=== PATIENT | female | born 1950 | race Caucasian/White ===

== ENCOUNTER → 2019-02-01 | Outpatient (CLI) | payer MEDICARE, OTHER ==
--- NOTE | 2019-02-01 09:56 | Diagnostic Imaging Report ---
INDICATION: Generalized abdominal pain. EXAMINATION: Supine and upright abdominal images. FINDINGS: The lung bases are clear. There is no retroperitoneal free air. The gallbladder appears to be surgically absent. The bowel gas pattern is normal. There are no pathologic masses or calcifications. IMPRESSION: No acute abnormalities in the abdomen. Dictated by: Dictated on workstation # [id number]
== END ==
LOC: RAD FS 09:35
PROVIDERS: ATTEND Nurse Practitioner Family
DX: R10.84 Generalized abdominal pain (principal)
CPT/HCPCS: 74019

== ENCOUNTER → 2019-03-10 | Outpatient (CLI) | payer MEDICARE, OTHER ==
[2019-03-10 13:20] LABS: BUN/CREATININE RATIO 24; CREATININE SERUM 0.85 MG/DL (0.60-1.30); GFR ESTIMATED > 60
--- NOTE | 2019-03-10 14:39 | Diagnostic Imaging Report ---
PROCEDURE: CT abdomen and pelvis with contrast. TECHNIQUE: Multiple contiguous axial images were obtained through the abdomen and pelvis after administration of intravenous contrast. Auto Exposure Controls were utilized during the CT exam to meet ALARA standards for radiation dose reduction. INDICATION: Lower abdominal pain and bloating. COMPARISON: No prior studies are available for comparison. FINDINGS: The lung bases are clear. Liver demonstrates diffuse low density consistent with hepatic steatosis. No discrete liver mass is identified. The gallbladder is surgically absent. No biliary ductal dilatation is seen. The pancreas and spleen are unremarkable. No adrenal mass is identified. The renal cortical low densities are noted suggestive of cysts. Aorta is non-aneurysmal. No central, retroperitoneal, or mesenteric lymphadenopathy is seen. The small and large bowel loops are normal caliber. No obstruction is seen. There is significant diverticulosis of the sigmoid colon but no evidence of acute diverticulitis. The appendix is unremarkable. No inflammatory changes are seen. There is no ascites. No free air is identified. The bladder is unremarkable. Uterus appears to be surgically absent. IMPRESSION: 1. Hepatic steatosis. 2. Status post cholecystectomy. 3. Bilateral renal low density suggestive of cysts. 4. Uncomplicated diverticulosis. 5. No acute features detected. Dictated by: Dictated on workstation # [id number]
== END ==
LOC: RAD 12:34
PROVIDERS: ATTEND Internal Medicine Gastroenterology
DX: K76.0 Fatty (change of) liver, not elsewhere classified (principal); N28.89 Other specified disorders of kidney and ureter; K57.30 Diverticulosis of large intestine without perforation or abscess without bleeding; Z90.49 Acquired absence of other specified parts of digestive tract
CPT/HCPCS: 36415; 74177; 82565; 82728; 83540; 84520; 85652; 86141

== ENCOUNTER → 2019-03-24 | Outpatient (CLI) | payer MEDICARE, OTHER ==
--- NOTE | 2019-03-24 13:45 | Diagnostic Imaging Report ---
PROCEDURE: US Thyroid. TECHNIQUE: Multiple real-time grayscale images were obtained of the thyroid in various projections. INDICATION: Nontoxic goiter. COMPARISON: No prior studies are available for comparison. FINDINGS: The right lobe measures 5.0 x 1.5 x 1.9 cm and the left lobe measures 4.7 x 1.2 x 1.6 cm. Isthmus is 4 mm in thickness. Both lobes of the thyroid is fairly homogeneous. There are several tiny hypoechoic nodules in both lobes 2-4 mm in size, suggestive of colloid cysts. No dominant thyroid mass is detected. There is a nodule along the lower pole of the left lobe of the thyroid posteriorly which may represent a parathyroid nodule. This measures 1.6 x 1.0 x 0.9 cm. IMPRESSION: No dominant thyroid mass is detected. There is a solid ovoid nodule along the posterior margin of the lower pole left lobe of the thyroid which may represent parathyroid tissue. No other abnormality is seen. Dictated by: Dictated on workstation # [id number]
== END ==
LOC: RAD 12:27
PROVIDERS: ATTEND Internal Medicine Gastroenterology
DX: E04.1 Nontoxic single thyroid nodule (principal); R79.9 Abnormal finding of blood chemistry, unspecified
CPT/HCPCS: 36415; 76536; 83970; 85652; 86141

== ENCOUNTER 2019-04-29 05:38 | Outpatient (CLI) | payer MEDICARE, OTHER ==
[~2019-04-29] VITALS: Ht 162.6 cm; Wt 72.6 kg
[2019-04-29] MEDS ORDERED: NAPR220C11 PO (10:23)
[2019-04-29] MEDS ORDERED: DICY10CA12 PO (10:23)
[2019-04-29] MEDS ORDERED: HYDR12.5 PO (10:23)
[2019-04-29] MEDS ORDERED: FISH1CAP15 PO (10:23)
[2019-04-29] MEDS ORDERED: L.AC1CAP6 PO (10:23)
[2019-04-29] MEDS ORDERED: MULT-974 PO (10:23)
[2019-04-29] MEDS ORDERED: ACET-2267 PO (10:23)
[2019-04-29] MEDS ORDERED: GLUC-173 PO (10:23)
[2019-04-29] MEDS ORDERED: METO-333 PO (10:23)
== END 2019-04-29 11:27 | disposition home or self-care (01) ==
LOC: PREOP 05:38
PROVIDERS: ATTEND Surgery
DX: Z01.818 Encounter for other preprocedural examination (principal)

== ENCOUNTER 2019-05-06 07:47 | Day surgery (SDC) | payer MEDICARE, OTHER ==
[~2019-05-06] VITALS: Ht 162.6 cm; Wt 72.6 kg
[2019-05-06] VITALS (11 sets, daily range): BP systolic 133–164; BP diastolic 60–78
[~2019-05-06 07:47] MED LIST: ACET-2267 PO; DICY10CA12 PO; FISH1CAP15 PO; GLUC-173 PO; HYDR12.5 PO; L.AC1CAP6 PO; METO-333 PO; MULT-974 PO; NAPR220C11 PO
[2019-05-06] MEDS: LACTATED RINGERS 1,000 ML IV PRN ×2 (08:25→11:43)
[2019-05-06 08:37] LABS: BASOPHILS % (AUTO) 0 % (0-10); EOSINOPHILS # (AUTO) 0.1 10^3/uL (0.0-0.3); EOSINOPHILS % (AUTO) 3 % (0-10); HEMATOCRIT 42 % (35-52); HEMOGLOBIN 13.9 G/DL (11.5-16.0); LYMPHOCYTES # (AUTO) 1.7 X 10^3 (1.0-4.0); LYMPHOCYTES % (AUTO) 42 % (12-44); MEAN CORPUSCULAR HEMOGLOBIN 30 PG (25-34); MEAN CORPUSCULAR HGB CONC 33 G/DL (32-36); MEAN CORPUSCULAR VOLUME 91 FL (80-99); MEAN PLATELET VOLUME 9.6 FL (7.4-10.4); MONOCYTES # (AUTO) 0.4 X 10^3 (0.0-1.0); MONOCYTES % (AUTO) 9 % (0-12); NEUTROPHILS # (AUTO) 1.9 X 10^3 (1.8-7.8); NEUTROPHILS % (AUTO) 46 % (42-75); PLATELET COUNT 214 10^3/uL (130-400); RED CELL DISTRIBUTION WIDTH 12.9 % (10.0-14.5); WHITE BLOOD COUNT 4.1 10^3/uL (4.3-11.0)
[2019-05-06] MEDS ORDERED: ceFAZolin 2 GM/50 ML NS 50 ML IV ONE (08:45)
[2019-05-06] MEDS ORDERED: ceFAZolin 2 GM/50 ML NS 50 ML ONE (08:45)
[2019-05-06] MEDS ORDERED: HYDROcodone/APAP 5 MG/325 MG (LORTAB) TAB PO ONE (09:00)
[2019-05-06] MEDS ORDERED: ACETAMINOPHEN 325 MG TABLET PO PRN (09:00)
[2019-05-06] MEDS ORDERED: morphine INJ 10 MG/ML 1ML (SYR OR VIAL) IVP PRN (09:00)
[2019-05-06] MEDS ORDERED: ONDANSETRON 4 MG/2 ML (SDV) Z0FRAN IVP PRN ×2 (09:00→11:45)
[2019-05-06] MEDS ORDERED: HYDR-3816 PO ×2 (09:02→15:00)
--- NOTE | 2019-05-06 09:04 | Discharge Inst-Surgical ---
D/C Lap Instructions-KIDO Reconcile Patient Problems Problems Reviewed?: Yes New, Converted, or Re-Newed RX: RX on Chart Follow Up Appt in 2 weeks Activity as tolerated No driving for 24 hours No driving while on pain medications Incentive Spirometry use every 2 hours while awake Regular Diet High Fiber Diet 25g or more per day Avoid Alcohol, Caffeine, Spicy [place] and Acid foods. Drink 64 fluid oz or more of fluids per day. Symptoms to Report: Fever over 101 degree F, Nausea/Vomiting Infection Signs and Symptoms to report: Increased redness, Foul odor of wound, Increased drainage Bathing instructions: May shower Operative Area Clean/Dry; Keep incision clean/dry IZZY MORENO APRN May 06, 2019 09:04
--- NOTE | 2019-05-06 09:06 | Progress Note-Pre Operative ---
Pre-Operative Progress Note H&P Reviewed The H&P was reviewed, patient examined and no changes noted. Date Seen by Provider: May 06, 2019 Time Seen by Provider: 09:00 Date H&P Reviewed: May 06, 2019 Time H&P Reviewed: 08:55 Pre-Operative Diagnosis: Ventral abdominal hernia, reflux, screening colonoscopy IZZY MORENO APRN May 06, 2019 09:06
[2019-05-06] MEDS ORDERED: BUP/EPI 0.25% 1:200,000 (MARCAINE) 10 ML VIAL IJ ONE (09:29)
[2019-05-06] MEDS ORDERED: DEXAMETHASONE 10 MG/ML (DECADRON) 1 ML VIAL ONE (09:40)
[2019-05-06] MEDS ORDERED: LIDOCAINE PF 2% 5 ML (XYLOCAINE) VIAL ONE (09:40)
[2019-05-06] MEDS ORDERED: proPOfol 200 MG/20 ML (DIPRIVAN) VIAL IV ONE (09:40)
[2019-05-06] MEDS ORDERED: ONDANSETRON 4 MG/2 ML (SDV) Z0FRAN ONE (09:40)
[2019-05-06] MEDS ORDERED: fentaNYL INJECTION 100 MCG/2 ML AMP ONE (09:41)
[2019-05-06] MEDS ORDERED: MIDAZOLAM 2 MG/2 ML (VERSED) VIAL ONE (09:41)
[2019-05-06] MEDS ORDERED: ROCURONIUM 10 MG/ML 5 ML SYRINGE IV ONE (09:43)
[2019-05-06] MEDS ORDERED: BUPIVACAINE 0.5% 30 ML (SENSORCAINE) VIAL ONE (10:33)
[2019-05-06] MEDS ORDERED: GLYCOPYRROLATE 0.2 MG/ML (ROBINUL) 2 ML VIAL ONE (11:34)
[2019-05-06] MEDS ORDERED: NEOSTIGMINE 3 MG/3 ML VIAL ONE (11:34)
[2019-05-06] MEDS ORDERED: morphine INJ 10 MG/ML 1ML (SYR OR VIAL) IVP ONE (11:45)
[2019-05-06] MEDS ORDERED: MEPERIDINE (DEMEROL) INJ 50 MG/ML IVP ONE (11:45)
[2019-05-06] MEDS ORDERED: fentaNYL INJECTION 100 MCG/2 ML AMP IVP ONE (11:45)
--- NOTE | 2019-05-06 11:56 | Progress Note-Post Operative ---
Post-Operative Progess Note Surgeon (s)/Vacuum Cleaner Operator (s) Surgeon Dr. Sam Amaya M.D. Vacuum Cleaner Operator: Gadiel Moreno APRN Pre-Operative Diagnosis Ventral abdominal hernia, reflux, screening colonoscopy Post-Operative Diagnosis Omental adhesions chandana-umbilical and pelvis, reflux esophagitis stage 2, small hiatal hernia (1.5 cm), mild-moderate gastritis, mild chronic stage 2 internal and external hemorrhoids, moderate sigmoid diverticulosis, rectal polyp (6 mm). Procedure & Operative Findings Date of Procedure 05/06/19 Procedure Performed/Findings Diagnostic Laparoscopy, lysis of adhesions, EGD with biopsy, colonoscopy with snare polypectomy and submucosal injection Anesthesia Type GET Estimated Blood Loss Estimated blood loss (mL): minimal Specimens/Packing Specimens Removed 1) antrum 2) GE junction GADIEL MORENO APRN May 06, 2019 11:56
[2019-05-06] MEDS ORDERED: PANT40TA2 PO (11:58)
[2019-05-06] MEDS ORDERED: SEVOFLURANE (ULTANE) 15 ML INHAL SOLN ONE ×3 (12:01→12:34)
[2019-05-06] MEDS ORDERED: HYDROcodone/APAP 5 MG/325 MG (LORTAB) TAB ONE (14:11)
--- NOTE | 2019-05-06 22:35 | OPERATIVE REPORT ---
DATE OF SERVICE: 05/06/2019 ATTENDING PRIMARY CARE PHYSICIAN: Dr. Ranjeet Pitt. PREOPERATIVE DIAGNOSES: Lower quadrant abdominal pain, diarrhea, history of diverticulitis. POSTOPERATIVE DIAGNOSES: Pelvic omental adhesions. No hernia identified. Reflux esophagitis stage II, small hiatal hernia 2 cm in size with mild to moderate gastritis, chronic stage II external and internal hemorrhoids, sessile polyp of the rectum 6 mm in size, moderate sigmoid diverticulosis. PROCEDURE: Diagnostic laparoscopy, lysis of adhesions, EGD with biopsy, colonoscopy with snare polypectomy and submucosal injection. SURGEON: Dr. Amaya. NUCLEAR POWER REACTOR OPERATOR: Gadiel Sequeira APRN ANESTHESIA: General endotracheal. ESTIMATED BLOOD LOSS: Minimal. FINDINGS: Pelvic omental adhesions. No hernia identified. Reflux esophagitis stage II, small hiatal hernia 2 cm in size with mild to moderate gastritis, chronic stage II external and internal hemorrhoids, sessile polyp of the rectum 6 mm in size, moderate sigmoid diverticulosis. DISPOSITION: The patient tolerated the procedure well. INDICATIONS: The patient is a 69-year-old female referred over to us for lower abdominal pain. She reports several different issues, first, beginning October 2018 where she was doing exertional activity which was painting and developed lower quadrant abdominal pain. She was then seen by her physician where nothing was identified and then she had reported bilateral pelvic pain. She was suspected to having diverticulitis and was started on ciprofloxacin; however, due to the side effects of headache and blurred vision she only took the antibiotics for two days. During that timeframe, she also developed mild nausea and vomiting as well as diarrhea and constipation and did also notice blood per rectum. At that time, we do feel that she did have diverticulitis. She continues to have a crampy abdominal pain. She did have EGD and colonoscopy done in 2016 where she was found to have diverticulosis. She then was seen by several consultants including urology were normal. Voiding cystogram was performed. She underwent a transvaginal ultrasound, which was normal. She was then seen by gastroenterology where a CT scan was performed, which did not show any abnormalities. She was then seen by SECURITY CONTROL ROOM OFFICER and no gynecologic issues were identified. Upon examination, she did have infraumbilical pain upon deep palpation. DESCRIPTION OF PROCEDURE: The patient was brought to the endoscopy suite, the patient placed supine on the table. After adequate IV pain and sedative medications and general endotracheal intubation, the abdomen was prepped and draped in standard surgical fashion. An area in the left upper abdominal quadrant was then anesthetized using 0.5% Marcaine with epinephrine and a transverse skin incision was made using a 15 blade. An 0 silk suture was applied to the medial aspect of the incision for retraction and a Veress needle inserted with a low opening pressure of 0. The Veress needle was then inserted and the abdomen was then insufflated to 15 mmHg pressure. The Veress needle was removed and a 5 mm XL trocar was placed followed by a 5 mm 45-degree angle laparoscope visualizing the peritoneal cavity. A 4-quadrant abdominal exploration was performed. There were omental adhesions right along the umbilical region as well as the infraumbilical region. There were no hernias identified. We then proceeded to place a 5 mm left lower abdominal quadrant port after the skin and peritoneal lining were anesthetized using 0.5% Marcaine with epinephrine and a transverse skin incision made using a 15 blade. The adhesions were then taken down using Sonicision. No inguinal hernias were identified. There were no inflammatory changes identified throughout the colon or small bowel. The abdomen was then desufflated and the ports were removed. The skin incisions were closed using 4-0 Monocryl running subcuticular sutures. Wounds were then cleaned and covered with Dermabond. We then proceeded with the EGD. The mouthpiece was applied. The endoscope was placed in the mouth, visualizing the pharynx and hypopharyngeal region. Vocal cords, epiglottis and vallecula identified and appeared to be normal. The endoscope was then gently intubated into the esophageal opening. The esophagus was insufflated. The endoscope was then advanced into the 1st, 2nd and 3rd portion of the esophagus at the level of the GE junction. Reflux esophagitis stage II identified. There were no ulcers or strictures identified in this region. A biopsy was taken with forceps with visualization of good hemostasis. The endoscope was then advanced into the stomach. Endoscope retroflexed, visualizing small hiatal hernia approximately 2 cm in size. Moderate severity gastritis was noted. There were no formal ulcerations, polyps or any neoplasms. A biopsy was taken from the antrum to rule out H. pylori with visualization of good hemostasis. The endoscope was then advanced to the pylorus and the first and second portion of the duodenum, which appeared normal and no distal obstructions. The endoscope was then slowly withdrawn while taking second look and suctioning of residual area with no additional findings. We then proceeded with the colonoscopy portion of the procedure and the patient was placed in a frog leg position. A digital rectal examination was performed, which revealed chronic stage II external and internal hemorrhoids, not actively edematous nor inflamed and no bleeding. Normal sphincter tone was felt and there were no palpable masses. The endoscope was then intubated in the anus, rectum gently insufflated. The endoscope was then advanced through the valves of Tate of the rectum. At approximately the second valve of Tate or approximately 7 cm from the anal verge, a sessile polyp 6 to 10 mm that was identified. This was snared well as possible to the base and the remnants were then cauterized using forceps and electrocautery. The specimen was sent to pathology. Good hemostasis was observed. The endoscope was then advanced through the sigmoid colon where moderate to severe sigmoid diverticulosis identified. There were no mucosal inflammatory changes to indicate any active diverticulitis. The endoscope was then advanced through the remainder of the descending, transverse and ascending colon to the cecum. These segments were normal. The endoscope was then slowly withdrawn while taking a second look and suctioning of residual air with no additional findings. The patient tolerated the procedure well. We will start IV and oral pain medication as well as a clear liquid diet. When she is tolerating clears and has good pain control with oral pain medications, ambulating well, we will discharge to home. We will await biopsy results of the colon polyp. However, due to the size of the lesion, she may need either formal resection based on the pathology versus transrectal ultrasound and potential transrectal excision of the lesion. We will also start her on Protonix 40 mg daily as well as the necessary lifestyle and diet and accommodation including small and more frequent meals, avoidance of eating at night as well as head elevation while lying supine as well as the avoidance of caffeinated beverages, spicy, greasy acidic foods. Job ID: [id number] DocumentID: [id number] Dictated Date: 05/06/2019 12:57:10 Supervisory Forester Date: 05/06/2019 22:34:15 Dictated By: COLTON AMAYA MD MTDD
== END 2019-05-06 14:45 | disposition home or self-care (01) ==
LOC: SDC 07:47
PROVIDERS: ATTEND Surgery
DX: K21.0 Gastro-esophageal reflux disease with esophagitis (principal); D12.8 Benign neoplasm of rectum; N73.6 Female pelvic peritoneal adhesions (postinfective); K29.70 Gastritis, unspecified, without bleeding; K57.30 Diverticulosis of large intestine without perforation or abscess without bleeding; K64.1 Second degree hemorrhoids; K64.8 Other hemorrhoids; K44.9 Diaphragmatic hernia without obstruction or gangrene; R19.7 Diarrhea, unspecified; I10 Essential (primary) hypertension; Z88.1 Allergy status to other antibiotic agents; Z87.19 Personal history of other diseases of the digestive system; Z88.8 Allergy status to other drugs, medicaments and biological substances; Z90.710 Acquired absence of both cervix and uterus; Z90.79 Acquired absence of other genital organ(s); Z79.899 Other long term (current) drug therapy; Z83.3 Family history of diabetes mellitus; Z82.49 Family history of ischemic heart disease and other diseases of the circulatory system
CPT/HCPCS: 36415; 85025; 87081

== ENCOUNTER 2019-08-23 05:42 | Outpatient (CLI) | payer MEDICARE, OTHER ==
[~2019-08-23] VITALS: Ht 162 cm; Wt 72.7 kg
[~2019-08-23 05:42] MED LIST changes: +HYDR-3816 PO; +PANT40TA2 PO
== END 2019-08-23 14:54 | disposition home or self-care (01) ==
LOC: PREOP 05:42
PROVIDERS: ATTEND Surgery
DX: Z01.818 Encounter for other preprocedural examination (principal)

== ENCOUNTER 2019-09-01 08:59 | Day surgery (SDC) | payer MEDICARE, OTHER ==
[2019-09-01] VITALS (19 sets, daily range): BP systolic 107–180; BP diastolic 55–85
[~2019-09-01] VITALS: Ht 162 cm; Wt 72.7 kg
[2019-09-01] MEDS ORDERED: NS IV 500 ML 500 ML ONE (09:08)
[2019-09-01] MEDS ORDERED: NS IV 500 ML 500 ML IV PRN (09:18)
[2019-09-01] MEDS ORDERED: LIDOCAINE JELLY 2% 6 ML SYRINGE MM PRN (09:30)
[2019-09-01] MEDS ORDERED: fentaNYL INJECTION 100 MCG/2 ML AMP IVP ONE (09:30)
[2019-09-01] MEDS ORDERED: fentaNYL INJECTION 100 MCG/2 ML AMP ONE ×2 (10:10)
[2019-09-01] MEDS ORDERED: LIDOCAINE JELLY 2% 6 ML SYRINGE ONE (10:10)
[2019-09-01] MEDS ORDERED: MIDAZOLAM 5 MG/5 ML (VERSED) VIAL ONE ×2 (10:10→10:11)
--- NOTE | 2019-09-01 10:30 | Conscious Sedation/ASA ---
Conscious Sedation Pre-Proced Time 10:00 ASA Score 2 For ASA 3 and 4: Consider anesthesia and medical clearance. Also, for patients with a history of failed moderate sedation consider anesthesia. Airway Lungs Heart ASA score ASA 1: a normal healthy patient ASA 2: a patient with a mild systemic disease (mid diabetes, controlled hypertension, obesity ASA 3: a patient with a severe systemic disease that limits activity (angina, COPD, prior Myocardial infarction) ASA 4: a patient with an incapacitating disease that is a constant threat to life (CHF, renal failure) ASA 5: a moribund patient not expected to survive 24 hrs. (ruptured aneurysm) ASA 6: a declared brain- patient whose organs are being harvested. For emergent operations, add the letter E after the classification Mallampati Classification Grade 2 Sedation Plan Analgesia, Amnesia, Plan communicated to team members, Discussed options with patient/fam, Discussed risks with patient/fam The patient is an appropriate candidate to undergo the planned procedure, sedation, and anesthesia. The patient immediately re-assessed prior to indication. COLTON RAMIREZ MD Sep 01, 2019 10:30
--- NOTE | 2019-09-01 10:32 | Progress Note-Pre Operative ---
Pre-Operative Progress Note H&P Reviewed The H&P was reviewed, patient examined and no changes noted. Date Seen by Provider: Sep 01, 2019 Time Seen by Provider: 10:00 Date H&P Reviewed: Sep 01, 2019 Time H&P Reviewed: 10:00 Pre-Operative Diagnosis: hx large rectal tubulovillous adenoma COLTON RAMIREZ MD Sep 01, 2019 10:31
--- NOTE | 2019-09-01 10:33 | Discharge Inst-Surgical ---
D/C Lap Instructions-JAMES Follow Up Activity as tolerated High Fiber Diet 25g or more per day Avoid Alcohol, Caffeine, Spicy [place] and Acid foods. Drink 64 fluid oz or more of fluids per day. Symptoms to Report: Fever over 101 degree F, Nausea/Vomiting If any problems/questions: Contact your physician or go to Emergency Room COLTON RAMIREZ MD Sep 01, 2019 10:33
[2019-09-01] MEDS: MIDAZOLAM 5 MG/5 ML (VERSED) VIAL IV PRN ×4 (10:41→10:55)
[2019-09-01] MEDS ORDERED: ACETAMINOPHEN 325 MG TABLET PO PRN (10:45)
[2019-09-01] MEDS ORDERED: ONDANSETRON 4 MG/2 ML (SDV) Z0FRAN IVP PRN (10:45)
[2019-09-01] MEDS ORDERED: HYDROcodone/APAP 5 MG/325 MG (LORTAB) TAB PO PRN (10:45)
[2019-09-01] MEDS ORDERED: morphine INJ 10 MG/ML 1ML (SYR OR VIAL) IVP PRN ×2 (10:45)
--- NOTE | 2019-09-01 12:16 | Progress Note-Post Operative ---
Post-Operative Progess Note Surgeon (s)/Biological Science Technician (s) Surgeon COLTON RAMIREZ MD Biological Science Technician: none Pre-Operative Diagnosis hx large rectal tubulovillous adenoma Post-Operative Diagnosis mild chronic stage 2 ext and int hemorrhoids, no recurrent polyp, moderate sigmoid diverticulosis. Procedure & Operative Findings Date of Procedure 09/01/19 Procedure Performed/Findings Colonoscopy. Anesthesia Type cs Estimated Blood Loss Estimated blood loss (mL): minimal Specimens/Packing Specimens Removed none COLTON RAMIREZ MD Sep 01, 2019 12:16
--- NOTE | 2019-09-01 19:27 | OPERATIVE REPORT ---
DATE OF SERVICE: 09/01/2019 ATTENDING PRIMARY CARE PHYSICIAN: Dr. Ranjeet Pitt. PREOPERATIVE DIAGNOSIS: History of large tubulovillous adenoma of the rectum. POSTOPERATIVE DIAGNOSIS: Mild chronic stage II external and internal hemorrhoids, moderate sigmoid diverticulosis. PROCEDURE: Colonoscopy. SURGEON: Dr. Ramirez. ANESTHESIA: Conscious sedation. ESTIMATED BLOOD LOSS: Minimal. FINDINGS: Mild chronic stage II external and internal hemorrhoids, moderate sigmoid diverticulosis with no reoccurrence of polyp identified through previous submucosal injection of black ink. DISPOSITION: The patient tolerated the procedure well. INDICATIONS: The patient is a 69-year-old female known to us. She has had chronic abdominal pain issues and pelvic pain issues for years. She was initially suspected to have diverticulitis and was medically treated with ciprofloxacin; however, due to the secondary side effects, discontinue the medication. She also does have what sounds to be irritable bowel syndrome. She was seen by her wheelage clerk and underwent a full workup, which did not yield anything abnormal. She was found to have a small outpouching in the infraumbilical region and she had reported feeling an X shaped structure on an intermittent basis. We had done a diagnostic laparoscopy on her due to her persistence of symptoms on 05/06/2019. Overall, she was found to have was omental adhesions towards the anterior abdominal wall. An EGD and colonoscopy were also performed simultaneously and a relatively large polyp was identified of the rectum, which was removed by snare polypectomy. The polyp was approximately 6 mm in size. Submucosal black ink was also used to regine the region. The pathology of the polyp came back as a benign tubulovillous adenoma. Due to the size of the lesion, it was recommended to proceed with a followup colonoscopy in 3 months. She is otherwise doing well; however, she again does report some abdominal discomfort at times. DESCRIPTION OF PROCEDURE: The patient was brought to the endoscopy suite, laid in the left lateral decubitus position. After adequate IV pain and stated medications and conscious sedation anesthesia, a digital rectal examination was performed. Chronic stage II external and internal hemorrhoids were identified, which were not actively edematous, inflamed and no bleeding. Normal sphincter tone was felt and there were no palpable masses. The endoscope was then intubated to the anus and rectum gently insufflated. The previous submucosal injection area of the rectum was identified with no recurrent polyps identified. The endoscope was then advanced through the sigmoid colon where a moderate sigmoid diverticulosis identified. There were no mucosal inflammatory changes to indicate any active diverticulitis. The endoscope was then advanced to the remainder of the descending, transverse and ascending colon to the cecum. These segments were normal. There were no polyps or any neoplasms identified. The endoscope was then slowly withdrawn while taking a second look and suctioning residual air with no additional findings. The patient tolerated the procedure well. No polyps were identified on this colonoscopy. The previous polyp of the rectum was a tubulovillous adenoma and there is no reoccurrence. RECOMMENDATION: At this time is because of villous component of polyp was identified on pathology, we will recommend a followup colonoscopy in 3 years. She does not have any family history of colon cancer, so if this next colonoscopy is negative for any polyps then she may wait 10 years for her next colonoscopy after that. Job ID: [id number] DocumentID: [id number] Dictated Date: 09/01/2019 11:15:45 Field Representative Date: 09/01/2019 19:26:55 Dictated By: COLTON RAMIREZ MD
== END 2019-09-01 12:10 | disposition home or self-care (01) ==
LOC: ENDO 08:59
PROVIDERS: ATTEND Surgery
DX: K64.1 Second degree hemorrhoids (principal); K64.4 Residual hemorrhoidal skin tags; K57.30 Diverticulosis of large intestine without perforation or abscess without bleeding; I10 Essential (primary) hypertension; Z86.010 Personal history of colon polyps; Z88.1 Allergy status to other antibiotic agents; Z88.8 Allergy status to other drugs, medicaments and biological substances; Z90.710 Acquired absence of both cervix and uterus; Z90.49 Acquired absence of other specified parts of digestive tract; Z79.899 Other long term (current) drug therapy; Z83.3 Family history of diabetes mellitus; Z82.49 Family history of ischemic heart disease and other diseases of the circulatory system

== ENCOUNTER 2019-10-08 11:22 | Observation (INO) | payer MEDICARE, OTHER ==
[~2019-10-08] VITALS: Ht 162.5 cm; Wt 71.4 kg
[2019-10-08] MEDS ORDERED: ASPIRIN 81 MG CHEW (CHILDREN'S ASA) ONE (11:41)
[2019-10-08] MEDS ORDERED: ASPIRIN 81 MG CHEW (CHILDREN'S ASA) PO ONE ×2 (11:45)
[2019-10-08] MEDS ORDERED: NITROGLYCERIN 0.4 MG SL TABS BTL 25'S SL ONE (11:45)
[2019-10-08 11:54] LABS: HEMOGLOBIN 15.6 G/DL (11.5-16.0); MEAN CORPUSCULAR HEMOGLOBIN 29 PG (25-34); WHITE BLOOD COUNT 6.2 10^3/uL (4.3-11.0)
[2019-10-08 11:55] LABS: BASOPHILS % (AUTO) 1 % (0-10); EOSINOPHILS # (AUTO) 0.1 10^3/uL (0.0-0.3); EOSINOPHILS % (AUTO) 1 % (0-10); HEMATOCRIT 48 % (35-52); LYMPHOCYTES # (AUTO) 1.9 X 10^3 (1.0-4.0); LYMPHOCYTES % (AUTO) 31 % (12-44); MEAN CORPUSCULAR HGB CONC 33 G/DL (32-36); MEAN CORPUSCULAR VOLUME 91 FL (80-99); MEAN PLATELET VOLUME 9.4 FL (7.4-10.4); MONOCYTES # (AUTO) 0.4 X 10^3 (0.0-1.0); MONOCYTES % (AUTO) 7 % (0-12); NEUTROPHILS # (AUTO) 3.8 X 10^3 (1.8-7.8); NEUTROPHILS % (AUTO) 60 % (42-75); PLATELET COUNT 253 10^3/uL (130-400); RED CELL DISTRIBUTION WIDTH 12.3 % (10.0-14.5)
[2019-10-08 12:04] LABS: PROTHROMBIN TIME PATIENT 13.2 SEC (12.2-14.7)
--- NOTE | 2019-10-08 12:05 | ED Chest Pain ---
General Chief Complaint: Chest Pain Stated Complaint: CHEST HEAVINESS; ARM PAIN; NAUSEA History of Present Illness Date Seen by Provider: Oct 08, 2019 Time Seen by Provider: 12:00 Initial Comments 69-year-old female has hypertension (says blood pressure readings have been erratic recently) no other cardiac history She says that as long as a month ago she had noticed a discomfort under the upper sternum she variously describes it as a pressure burning and a feeling as though she can't get a deep breath assoc with tingling in her arms and left calf nausea no V also dizzy no syncope no fall Says this worsened over the last week mostly she would notice in the morning when she would get up she went to the doctor today for this symptom and was referred to the ER she is a nonsmoker not a diabetic does have family history of CAD s/p stefanie Allergies and Home Medications Allergies Coded Allergies: Fhqsycj-Ftz-Hzi Reductase Inhibitor (Verified Allergy, Severe, TACHYCARDIA, DIZZINESS, 04/29/19) ciprofloxacin (Verified Allergy, Severe, BLURRED VISION, TACHYCARDIA, ) pantoprazole (Unverified Allergy, Mild, HIVES, ITCHING, 08/23/19) Home Medications Acetaminophen 500 Mg Tablet, 1,000 MG PO Q6H PRN for PAIN-MILD (1-4), (Reported) Aspirin 81 Mg Tablet.dr, 81 MG PO DAILY, (Reported) Fish Oil/Dha/Epa 1 Each Capsule, 1 EACH PO DAILY, (Reported) Hydrochlorothiazide 12.5 Mg Capsule, 12.5 MG PO DAILY, (Reported) Metoprolol Tartrate 25 Mg Tablet, 25 MG PO BID, (Reported) Patient Home Medication List Home Medication List Reviewed: Yes Review of Systems Review of Systems Constitutional: dizziness EENTM: No Symptoms Reported Respiratory: Shortness of Air Cardiovascular: Chest Pain, Lightheadedness; Denies Palpitations, Denies Syncope Gastrointestinal: Nausea Genitourinary: No Symptoms Reported Musculoskeletal: no symptoms reported Skin: no symptoms reported Past Zvhieis-Nrftcz-Hkknib Hx Patient Social History Alcohol Use: Denies Use Recreational Drug Use: No Smoking Status: Never a Smoker 2nd Hand Smoke Exposure: No Recent Hopitalizations: No Seasonal Allergies Seasonal Allergies: Yes (MILD) Past Medical History Surgeries: Yes (Colonoscopy) Gallbladder, Hysterectomy Respiratory: No Cardiac: Yes High Cholesterol, Hypertension Neurological: No Sexually Transmitted Disease: No HIV/AIDS: No Genitourinary: No Gastrointestinal: Yes Gastroesophageal Reflux, Chronic Constipation, Chronic Diarrhea, Polyps Musculoskeletal: No Endocrine: Yes (Borderline sugar elevation) HEENT: No Loss of Vision: Denies Hearing Impairment: Denies Cancer: No Psychosocial: No Integumentary: No Blood Disorders: No Adverse Reaction/Blood Tranf: No (N/A) Physical Exam Vital Signs Vital Signs - First Documented 10/08/19 11:23 Temp 36.4 Pulse 61 Resp 18 B/P (MAP) 178/83 (114) Pulse Ox 98 O2 Delivery Room Air Capillary Refill : Less Than 3 Seconds Height, Weight, BMI Height: 5'4.00" Weight: 160lbs. 0.0oz. 72.769762wn; 27.70 BMI Method: General Appearance: No Apparent Distress, WD/WN HEENT: PERRL/EOMI, Normal ENT Inspection, Pharynx Normal Neck: Full Range of Motion, Supple Respiratory: Chest Non Tender, Lungs Clear, Normal Breath Sounds Cardiovascular: Regular Rate, Rhythm, No Murmur, Normal Peripheral Pulses Gastrointestinal: Normal Bowel Sounds, Tenderness (mild epigastric) Extremity: Non Tender, No Calf Tenderness Progress/Results/Core Measures Results/Orders Lab Results Laboratory Tests Test 10/08/19 11:33 Range/Units White Blood Count 6.2 4.3-11.0 10^3/uL Red Blood Count 5.29 4.35-5.85 10^6/uL Hemoglobin 15.6 11.5-16.0 G/DL Hematocrit 48 35-52 % Mean Corpuscular Volume 91 80-99 FL Mean Corpuscular Hemoglobin 29 25-34 PG Mean Corpuscular Hemoglobin Concent 33 32-36 G/DL Red Cell Distribution Width 12.3 10.0-14.5 % Platelet Count 253 130-400 10^3/uL Mean Platelet Volume 9.4 7.4-10.4 FL Neutrophils (%) (Auto) 60 42-75 % Lymphocytes (%) (Auto) 31 12-44 % Monocytes (%) (Auto) 7 0-12 % Eosinophils (%) (Auto) 1 0-10 % Basophils (%) (Auto) 1 0-10 % Neutrophils # (Auto) 3.8 1.8-7.8 X 10^3 Lymphocytes # (Auto) 1.9 1.0-4.0 X 10^3 Monocytes # (Auto) 0.4 0.0-1.0 X 10^3 Eosinophils # (Auto) 0.1 0.0-0.3 10^3/uL Basophils # (Auto) 0.0 0.0-0.1 10^3/uL Prothrombin Time 13.2 12.2-14.7 SEC INR Comment 1.0 0.8-1.4 D-Dimer 0.48 0.00-0.49 UG/ML Sodium Level 141 135-145 MMOL/L Potassium Level 3.8 3.6-5.0 MMOL/L Chloride Level 99 98-107 MMOL/L Carbon Dioxide Level 26 21-32 MMOL/L Anion Gap 16 H 5-14 MMOL/L Blood Urea Nitrogen 18 7-18 MG/DL Creatinine 0.87 0.60-1.30 MG/DL Estimat Glomerular Filtration Rate > 60 BUN/Creatinine Ratio 21 Glucose Level 129 H 70-105 MG/DL Calcium Level 10.6 H 8.5-10.1 MG/DL Corrected Calcium 8.5-10.1 MG/DL Total Bilirubin 0.4 0.1-1.0 MG/DL Aspartate Amino Transf (AST/SGOT) 20 5-34 U/L Alanine Aminotransferase (ALT/SGPT) 23 0-55 U/L Alkaline Phosphatase 78 40-136 U/L Troponin I < 0.30 <0.30 NG/ML Total Protein 8.2 6.4-8.2 GM/DL Albumin 5.0 H 3.2-4.5 GM/DL My Orders Orders - DAWNA ENGEL MD Aspirin Chewable Tablet (Baby Aspirin Ch (10/08/19 11:45) Aspirin Chewable Tablet (Baby Aspirin Ch (10/08/19 11:41) Chest 1 View Ap/Pa Only (10/08/19 11:44) Ekg Tracing (10/08/19 11:44) Ed Iv/Invasive Line Start (10/08/19 11:44) Monitor-Rhythm Ecg Trace Only (10/08/19 11:44) O2 (10/08/19 11:44) Aspirin Chewable Tablet (Baby Aspirin Ch (10/08/19 11:45) Cbc With Automated Diff (10/08/19 11:44) Comprehensive Metabolic Panel (10/08/19 11:44) Troponin I Fs (10/08/19 11:44) Nitroglycerin 0.4 Mg Btl 25's (Nitrostat (10/08/19 11:45) Protime With Inr (10/08/19 11:48) Fibrin Degradation Products (10/08/19 12:08) Medications Given in ED Current Medications Medications Dose Ordered Sig/Sukhwinder Route Start Time Stop Time Status Last Admin Dose Admin Aspirin 324 mg ONCE ONCE PO 10/08/19 11:45 10/08/19 11:46 DC 10/08/19 11:48 324 MG Nitroglycerin 0.4 mg ONCE ONCE SL 10/08/19 11:45 10/08/19 11:49 DC 10/08/19 12:00 0.4 MG Vital Signs/I&O 10/08/19 10/08/19 11:23 11:23 Temp 36.4 Pulse 61 Resp 18 B/P (MAP) 178/83 (114) Pulse Ox 98 O2 Delivery Room Air Room Air Progress Progress Note : Progress Note received a 324 aspirin chewed nasal oxygen and 1 nitroglycerin 0.4 sl He did have resolution of all chest discomfort following the nitroglycerin BP has drifted down to the 130 range Hb 15.6 WBC 6200 CMP neg trop 0.3 (neg) d-dimer - neg agrees to accept to step down unit obs Initial ECG Impression Date: Oct 08, 2019 Initial ECG Impression Time: 12:06 Diagnostic Imaging Comments EKG shows sinus rhythm at a rate of 57 flipped T-wave in V2 no ST segment changes Departure Communication (Admissions) Time/Spoke to Admitting Phy: 12:56 Impression Primary Impression: Chest pain Qualified Codes: I20.8 - Other forms of angina pectoris Disposition: 09 ADMITTED INPATIENT Condition: Stable Admissions Decision to Admit Reason: Admit from ER (General) Decision to Admit/Date: Oct 08, 2019 Time/Decision to Admit Time: 12:57 Transfer Method of Transfer: EMS Departure-Patient Inst. Referrals: GIGI XIE MD (PCP/Family) Primary Care Physician DAWNA ENGEL MD Oct 08, 2019 12:05
[2019-10-08] MEDS ORDERED: ASPI-586 PO (12:07)
--- NOTE | 2019-10-08 12:16 | Diagnostic Imaging Report ---
INDICATION: Chest heaviness, worsening 1 month's severity with new onset uncontrolled hypertension. No priors. Heart size and configuration normal. No vascular congestion, edema, pneumonia, effusion or pneumothorax. IMPRESSION: Negative. Dictated by: Dictated on workstation # [id number]
[2019-10-08 12:20] LABS: BUN/CREATININE RATIO 21; CALCIUM 10.6 MG/DL (8.5-10.1); CARBON DIOXIDE 26 MMOL/L (21-32); CHLORIDE 99 MMOL/L (98-107); CREATININE SERUM 0.87 MG/DL (0.60-1.30); GFR ESTIMATED > 60; GLUCOSE 129 MG/DL (70-105); POTASSIUM 3.8 MMOL/L (3.6-5.0); SODIUM 141 MMOL/L (135-145)
[2019-10-08 12:21] LABS: ALANINE AMINOTRANSFERASE 23 U/L (0-55); ALKALINE PHOSPHATASE 78 U/L (40-136); BILIRUBIN,TOTAL 0.4 MG/DL (0.1-1.0); TOTAL PROTEIN 8.2 GM/DL (6.4-8.2)
--- NOTE | 2019-10-08 12:45 | NUR ---
Dr Andersons in to see patient and explain need to call hospitalist for [facility] request for cardiac work up admit/OBS. Pt had many questions including asking if they could go home and drive down later tonight. Process of admission along with EMTALA explained. Pt consents to plan to the admit and going via EMS after some details discussed.
--- NOTE | 2019-10-08 12:52 | NUR ---
Dr Smith receives acceptance for OBS admit for chest pain R/O from Dr Barton.
--- NOTE | 2019-10-08 13:24 | NUR ---
Initiated report with [facility] nurse, Monica GONZALEZ.
--- NOTE | 2019-10-08 13:25 | NUR ---
Dispatch for [facility]
--- NOTE | 2019-10-08 13:35 | NUR ---
[facility] arrival and report to [place] CONDUIT INSTALLER
--- NOTE | 2019-10-08 13:42 | NUR ---
Depart [facility] at this time per [facility]. Pt is stable, improved. SL intact. NIBP-143/74, SB-57.
--- NOTE | 2019-10-08 14:46 | History & Physical-Hospitalist ---
History of Present Illness HPI/Chief Complaint this is a 69-year-old white female who presents with chest pressure intermittently but not always with exertion. she presented to the emergency room in [place] where she was given nitroglycerin with complete relief of her chest discomfort. She has a history of hypertension, hyperlipidemia, and family history of heart disease at a late age. She is adopted so some of her family history is unknown. At the time of my interview she is pain every Source: patient Exam Limitations: no limitations Date Seen 10/08/19 Time Seen by a Provider: 14:45 Attending Physician Jerri Barton MD PCP Self,Tee SANCHEZ Referring Physician Date of Admission Oct 08, 2019 at 13:16 Home Medications & Allergies Home Medications Reviewed patient Home Medication Reconciliation performed by pharmacy medication reconciliations surgical technician and/or nursing. Patients Allergies have been reviewed. Allergies Allergies Coded Allergies Yawzulq-Kyv-Bca Reductase Inhibitor (Verified Allergy, Severe, TACHYCARDIA, DIZZINESS, 04/29/19) ciprofloxacin (Verified Allergy, Severe, BLURRED VISION, TACHYCARDIA, 04/29/19) pantoprazole (Unverified Allergy, Mild, HIVES, ITCHING, 08/23/19) Past Vxtiycw-Qoapjh-Izrzui Hx Past Med/Social Hx: Reviewed Nursing Past Med/Soc Hx Patient Social History Marrital Status: Employed/Student: retired Alcohol Use: Denies Use Recreational Drug Use: No Smoking Status: Never a Smoker 2nd Hand Smoke Exposure: No Recent Foreign Travel: No Contact w/other who traveled: No Recent Hopitalizations: No Recent Infectious Disease Expo: No Seasonal Allergies Seasonal Allergies: Yes (MILD) Past Medical History Surgeries: Gallbladder, Hysterectomy Cardiac: High Cholesterol, Hypertension Sexually Transmitted Disease: No HIV/AIDS: No Gastrointestinal: Gastroesophageal Reflux, Chronic Constipation, Chronic Diarrhea, Polyps Loss of Vision: Denies Hearing Impairment: Denies Psychosocial: Anxiety History of Blood Disorders: No Adverse Reaction to Blood Rodriguez: No (N/A) Review of Systems Constitutional: see HPI EENTM: no symptoms reported Respiratory: no symptoms reported Cardiovascular: chest pain Gastrointestinal: no symptoms reported Genitourinary: no symptoms reported Skin: no symptoms reported Psychiatric/Neurological: Tingling (arms) Physical Exam Physical Exam Vital Signs Vital Signs - First Documented 10/08/19 10/08/19 11:23 12:00 Temp 36.4 Pulse 61 Resp 18 B/P (MAP) 178/83 (114) Pulse Ox 98 O2 Delivery Room Air O2 Flow Rate 2.00 Capillary Refill : Less Than 3 Seconds Height, Weight, BMI Height: 5'4.00" Weight: 160lbs. 0.0oz. 72.523573vt; 27.00 BMI Method: General Appearance: No Apparent Distress, WD/WN HEENT: Normal ENT Inspection Neck: Normal Inspection, Non Tender, Supple Respiratory: Chest Non Tender, Lungs Clear, Normal Breath Sounds, No Accessory Muscle Use, No Respiratory Distress Cardiovascular: Regular Rate, Rhythm, No Edema, No Gallop, No Murmur, Normal Pe ripheral Pulses Gastrointestinal: Normal Bowel Sounds, No Organomegaly, No Pulsatile Mass, Non Tender, Soft Back: Normal Inspection, No CVA Tenderness, No Vertebral Tenderness Extremity: Non Tender, No Calf Tenderness Neurologic/Psychiatric: Alert, Oriented x3, No Motor/Sensory Deficits, Normal Mood/Affect, 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 Imaging: Reviewed Imaging Report Assessment/Plan Admission Diagnosis chest pain Hypertension poorly controlled Hyperlipidemia Admission Status: Observation Clinical Quality Measures AMI/AHF: ASA po Prior to arrival: Yes (81 mg) Copy Copies To 1: SELF,JERRI HOLDER MD, MD Oct 08, 2019 14:46
[2019-10-08] MEDS ORDERED: FLU QUADRIvalent (5+ YOA) 2019-2020 (AFLURIA) 0.5 ML IM ONE (15:30)
[2019-10-08] MEDS ORDERED: CATHETER FLUSH 10 ML SYR IV PRN (15:30)
--- NOTE | 2019-10-08 15:55 | NUR ---
PT C/O OF HEADACHE DR ROSAS ON FLOOR NEW VERBAL ORDERS RECEIVED SEE ORDER HX.
--- NOTE | 2019-10-08 15:57 | Consultation-Cardiology ---
HPI-Cardiology Cardiology Consultation Date of Consultation 10/08/19 Date of Admission Time Seen by Provider: 15:54 Indication: Chest pain HPI 69-year-old lady with history of hypertension, strong family history of heart disease. Started to have chest pain described as dull achiness and discomfort in the chest, had an episode of sharp pain last night on the left side, has been having numbness in her arm and having labile blood pressure. She came into the emergency room for evaluation still having numbness in her left arm. Mild shortness of breath. No palpitation. No syncope or near syncopal episodes. Home Medications & Allergies Allergies: Coded Allergies: Keinuss-Uru-Njy Reductase Inhibitor (Verified Allergy, Severe, TACHYCARDIA, DIZZINESS, 04/29/19) ciprofloxacin (Verified Allergy, Severe, BLURRED VISION, TACHYCARDIA, 04/29/19) pantoprazole (Unverified Allergy, Mild, HIVES, ITCHING, 08/23/19) Home Medication List Reviewed: Yes DBP-Qqyxhz-Zzvywt Hx Patient Social History Marital Status: Employed/Student: retired Alcohol Use: Denies Use Recreational Drug Use: No Smoking Status: Never a Smoker 2nd Hand Smoke Exposure: No Recent Foreign Travel: No Recent Infectious Disease Expo: No Recent Hopitalizations: No Physical Abuse Screen: No Sexual Abuse: No Immunizations Up To Date Date of Pneumonia Vaccine: Oct 08, 2018 Past Medical History Discussed below Family Medical History Family Medical Hx Mother has history of coronary artery disease Review of Systems-General Review of Systems Constitutional: no symptoms reported, see HPI EENTM: see HPI, no symptoms reported Respiratory: see HPI; No cough, No dyspnea on exertion, No hemoptysis, No orthopnea, No phlegm, No short of breath, No stridor, No wheezing, No other Cardiovascular: see HPI, chest pain; No edema, No Hx of Intervention, No palpitations, No syncope, No vascular heart diseas, No other Gastrointestinal: no symptoms reported, nausea Genitourinary: no symptoms reported, see HPI Musculoskeletal: no symptoms reported, see HPI Skin: no symptoms reported, see HPI Psychiatric/Neurological: See HPI, Tingling (arms) Reviewed Test Results Reviewed Test Results Lab Laboratory Tests Test 10/08/19 11:33 Range/Units White Blood Count 6.2 4.3-11.0 10^3/uL Red Blood Count 5.29 4.35-5.85 10^6/uL Hemoglobin 15.6 11.5-16.0 G/DL Hematocrit 48 35-52 % Mean Corpuscular Volume 91 80-99 FL Mean Corpuscular Hemoglobin 29 25-34 PG Mean Corpuscular Hemoglobin Concent 33 32-36 G/DL Red Cell Distribution Width 12.3 10.0-14.5 % Platelet Count 253 130-400 10^3/uL Mean Platelet Volume 9.4 7.4-10.4 FL Neutrophils (%) (Auto) 60 42-75 % Lymphocytes (%) (Auto) 31 12-44 % Monocytes (%) (Auto) 7 0-12 % Eosinophils (%) (Auto) 1 0-10 % Basophils (%) (Auto) 1 0-10 % Neutrophils # (Auto) 3.8 1.8-7.8 X 10^3 Lymphocytes # (Auto) 1.9 1.0-4.0 X 10^3 Monocytes # (Auto) 0.4 0.0-1.0 X 10^3 Eosinophils # (Auto) 0.1 0.0-0.3 10^3/uL Basophils # (Auto) 0.0 0.0-0.1 10^3/uL Prothrombin Time 13.2 12.2-14.7 SEC INR Comment 1.0 0.8-1.4 D-Dimer 0.48 0.00-0.49 UG/ML Sodium Level 141 135-145 MMOL/L Potassium Level 3.8 3.6-5.0 MMOL/L Chloride Level 99 98-107 MMOL/L Carbon Dioxide Level 26 21-32 MMOL/L Anion Gap 16 H 5-14 MMOL/L Blood Urea Nitrogen 18 7-18 MG/DL Creatinine 0.87 0.60-1.30 MG/DL Estimat Glomerular Filtration Rate > 60 BUN/Creatinine Ratio 21 Glucose Level 129 H 70-105 MG/DL Calcium Level 10.6 H 8.5-10.1 MG/DL Corrected Calcium 8.5-10.1 MG/DL Total Bilirubin 0.4 0.1-1.0 MG/DL Aspartate Amino Transf (AST/SGOT) 20 5-34 U/L Alanine Aminotransferase (ALT/SGPT) 23 0-55 U/L Alkaline Phosphatase 78 40-136 U/L Troponin I < 0.30 <0.30 NG/ML Total Protein 8.2 6.4-8.2 GM/DL Albumin 5.0 H 3.2-4.5 GM/DL Physical Exam Physical Exam Vital Signs Vital Signs - First Documented 10/08/19 10/08/19 11:23 12:00 Temp 36.4 Pulse 61 Resp 18 B/P (MAP) 178/83 (114) Pulse Ox 98 O2 Delivery Room Air O2 Flow Rate 2.00 Capillary Refill : Less Than 3 Seconds Height, Weight, BMI Height: 5'4.00" Weight: 160lbs. 0.0oz. 72.883720pz; 27.11 BMI Method: General Appearance: No Apparent Distress, WD/WN HEENT: Normal ENT Inspection Neck: Normal Inspection, Non Tender, Supple Respiratory: Chest Non Tender, Lungs Clear, Normal Breath Sounds, No Accessory Muscle Use, No Respiratory Distress Cardiovascular: Regular Rate, Rhythm, No Edema, No Gallop, No Murmur, Normal Peripheral Pulses Gastrointestinal: Normal Bowel Sounds, No Organomegaly, No Pulsatile Mass, Non Tender, Soft Back: Normal Inspection, No CVA Tenderness, No Vertebral Tenderness Extremity: Non Tender, No Calf Tenderness Neurologic/Psychiatric: Alert, Oriented x3, No Motor/Sensory Deficits, Normal Mood/Affect, document reviewer II-XII Norm as Tested Skin: Normal Color, Warm/Dry A/P-Cardiology Admission Diagnosis Chest pain Hypertension Hyperlipidemia Family history of atherosclerosis Assessment/Plan Chest pain, nonspecific etiology, resembling angina, still having some numbness in the arms especially the left arm, mild dyspnea, discussed the management plan, discussed the possibility of stress test versus cardiac catheterization, patient preferred to proceed with cardiac catheterization possible PTCA. Hypertension, labile, restart metoprolol and hydrochlorothiazide and monitor blood pressure Questionable hyperlipidemia, evaluate lipids Recurrent headache, started on Tylenol and Strong family history of heart disease Clinical Quality Measures AMI/AHF: ASA po Prior to arrival: Yes (81 mg) DVT/VTE Risk/Contraindication: Risk Factor Score Per Nursin RFS Level Per Nursing on Admit: 2=Moderate SHALOM ROSAS MD Oct 08, 2019 15:57
[2019-10-08 16:00] VITALS: BP 160/81
[2019-10-08] MEDS ORDERED: ACETAMINOPHEN 325 MG TABLET PO PRN (16:00)
[2019-10-08] MEDS ORDERED: PATIENT MAY USE OWN MEDS, ALL MC SCH (18:15)
[2019-10-08 20:50] VITALS: BP 137/77
[2019-10-08] MEDS ORDERED: meTOprolol TARTRATE 25 MG (LOPRESSOR) TABLET PO SCH (21:00)
[2019-10-08] MEDS: CATHETER FLUSH 10 ML SYR IV SCH (22:00)
[2019-10-08] MEDS: meTOprolol TARTRATE 25 MG (LOPRESSOR) TABLET PO SCH (23:43)
[2019-10-09] VITALS (9 sets, daily range): BP systolic 103–138; BP diastolic 66–79
[2019-10-09 04:00] LABS: HEMOGLOBIN 14.8 G/DL (11.5-16.0); MEAN PLATELET VOLUME 9.6 FL (7.4-10.4); RED CELL DISTRIBUTION WIDTH 12.9 % (10.0-14.5); WHITE BLOOD COUNT 5.9 10^3/uL (4.3-11.0)
[2019-10-09 04:22] LABS: ALANINE AMINOTRANSFERASE 24 U/L (0-55); ALBUMIN 4.3 GM/DL (3.2-4.5); ALKALINE PHOSPHATASE 72 U/L (40-136); BILIRUBIN,TOTAL 0.5 MG/DL (0.1-1.0); BUN/CREATININE RATIO 23; CALCIUM 9.9 MG/DL (8.5-10.1); CARBON DIOXIDE 24 MMOL/L (21-32); CHLORIDE 102 MMOL/L (98-107); CREATININE SERUM 0.86 MG/DL (0.60-1.30); GFR ESTIMATED > 60; GLUCOSE 121 MG/DL (70-105); POTASSIUM 3.7 MMOL/L (3.6-5.0); SODIUM 140 MMOL/L (135-145); TRIGLYCERIDES 179 MG/DL (<150)
[2019-10-09 04:23] LABS: CHOLESTEROL 246 MG/DL (< 200); HDL CHOLESTEROL 52 MG/DL (40-60); VLDL CHOLESTEROL 36 MG/DL (5-40)
[2019-10-09] MEDS: CATHETER FLUSH 10 ML SYR IV SCH (06:36)
[2019-10-09] MEDS: meTOprolol TARTRATE 25 MG (LOPRESSOR) TABLET PO SCH (08:38)
[2019-10-09] MEDS ORDERED: ASPIRIN 81 MG CHEW (CHILDREN'S ASA) PO SCH (09:00)
[2019-10-09] MEDS ORDERED: HYDROCHLOROTHIAZIDE 25 MG (HCTZ) TAB PO SCH (09:00)
[2019-10-09] MEDS ORDERED: HYDROCHLOROTHIAZIDE 12.5 MG (HCTZ) CAP PO SCH (09:00)
[2019-10-09] MEDS ORDERED: MIDAZOLAM 5 MG/5 ML (VERSED) VIAL ONE (10:02)
[2019-10-09] MEDS ORDERED: fentaNYL INJECTION 100 MCG/2 ML AMP ONE (10:02)
[2019-10-09] MEDS ORDERED: NS IV 1000 ML 1,000 ML ONE (10:02)
[2019-10-09] MEDS ORDERED: LIDOCAINE 1% INJ 20 ML 20 ML VIAL ONE (10:02)
[2019-10-09] MEDS ORDERED: HEParin (CATH LAB) 2,000 ML IV ONE (10:02)
--- NOTE | 2019-10-09 10:02 | Cardiology Progress Note ---
Subjective Date Seen by Provider: Oct 09, 2019 Time Seen by Provider: 10:01 Subjective/Events-last exam Patient is laying down in bed, feeling better. No new complaint Review of Systems General: No Chills, No Night Sweats, No Fatigue, No Malaise, No Appetite, No Other HEENT: No Head Aches, No Visual Changes, No Eye Pain, No Ear Pain, No Dysphasia, No Sinus Congestion, No Post Nasal Drip, No Sore Throat, No Other Pulmonary: No Dyspnea, No Cough, No Pleuritic Chest Pain, No Other Cardiovascular: No: Chest Pain, Palpitations, Orthopnea, Paroxysmal Noc. Dyspnea, Edema, Lt Headedness, Other Objective-Cardiology Exam Last Set of Vital Signs Vital Signs 10/08/19 10/09/19 13:42 08:51 Pulse Ox 96 O2 Delivery Room Air O2 Flow Rate 2.00 Capillary Refill : Less Than 3 Seconds I&O Intake and Output 10/09/19 00:00 Intake Total 300 ml Output Total 350 ml Balance -50 ml Intake Oral 300 ml Output Urine Total 350 ml Daily Weight Change No General: Alert, Oriented X3, Cooperative HEENT: Atraumatic, PERRLA Neck: Supple, No JVD, No Thyromegaly Lungs: Clear to Auscultation, Normal Air Movement Heart: Regular Rate, Normal S1, Normal S2, No Murmurs Abdomen: Normal Bowel Sounds, Soft, No Tenderness, No Hepatosplenomegaly, No Masses Extremities: No Clubbing, No Cyanosis, No Edema, Normal Pulses, No Tenderness/ Swelling Skin: No Rashes, No Breakdown, No Significant Lesion Neuro: Normal Gait, Normal Speech, Strength at 5/5 X4 Ext, Normal Tone, Sensation Intact Psych/Mental Status: Mental Status NL, Mood NL Results Lab Laboratory Tests 10/08/19 11:33 10/09/19 03:40 A/P-Cardiology Admission Diagnosis Chest pain Hypertension Hyperlipidemia Family history of atherosclerosis Assessment/Plan Chest pain, nonspecific etiology, resembling angina, mild dyspnea, better today, planning to proceed with cardiac catheterization possible PTCA Hypertension, labile, monitor blood pressure Hyperlipidemia, planning to start statin was cardiac catheterization Recurrent headache, reporting improvement. Strong family history of heart disease Clinical Quality Measures AMI/AHF: ASA po Prior to arrival: Yes (81 mg) DVT/VTE Risk/Contraindication: Risk Factor Score Per Nursin RFS Level Per Nursing on Admit: 2=Moderate SHALOM ROSAS MD Oct 09, 2019 10:02
--- NOTE | 2019-10-09 10:03 | Cardiac Procedure Note-CS/ASA ---
Pre-Procedure Note Pre-Op Procedure Note H&P Reviewed The H&P was reviewed, patient examined and no changes noted. Date H&P Reviewed: Oct 09, 2019 Time H&P Reviewed: 10:03 Conscious Sedation Pre-Proced Time 10:03 ASA Score 3 For ASA 3 and 4: Consider anesthesia and medical clearance. Also, for patients with a history of failed moderate sedation consider anesthesia. Airway Lungs Heart ASA score ASA 1: a normal healthy patient ASA 2: a patient with a mild systemic disease (mid diabetes, controlled hypertension, obesity x ASA 3: a patient with a severe systemic disease that limits activity (angina, COPD, prior Myocardial infarction) ASA 4: a patient with an incapacitating disease that is a constant threat to life (CHF, renal failure) ASA 5: a moribund patient not expected to survive 24 hrs. (ruptured aneurysm) ASA 6: a declared brain- patient whose organs are being harvested. For emergent operations, add the letter E after the classification Mallampati Classification Grade 3 Sedation Plan Analgesia, Amnesia, Plan communicated to team members, Discussed options with patient/fam, Discussed risks with patient/fam The patient is an appropriate candidate to undergo the planned procedure, sedation, and anesthesia. The patient immediately re-assessed prior to indication. SHALOM ROSAS MD Oct 09, 2019 10:03
[2019-10-09] MEDS ORDERED: NS IV 1000 ML 1,000 ML IV SCH ×2 (11:00→11:06)
[2019-10-09] MEDS ORDERED: ATOR10TA PO (11:09)
--- NOTE | 2019-10-09 11:10 | Discharge Inst-Post CATH ---
Discharge Inst-CATH/EP Problems Reviewed?: Yes Post Cardiac Cath/EP D/C Inst Follow Up/Plan Appointment with Dr. ROSAS's office in 2-4 weeks <b>CARDIAC CATH/EP PROCEDURE DISCHARGE INSTRUCTIONS</b> ACTIVITY * Go Home directly and rest. * Limit activity of the leg (or wrist if it was used) for 7 days including aerobics, swimming, jogging, bicycling, etc. * Restrict stair-climbing for 7 days if possible, if not, climb up with your non-cath leg, then bring together on the same step. * Avoid lifting, pushing, pulling or excessive movement of the affected extremity for 7 days. * Customary sexual activity may be resumed after 2 days-use caution not to use a position that strains or causes pain to the affected extremity. * No driving for 24 hours. * NO SMOKING. * Avoid straining for bowel movements for 7 days. * Gentle walking on level ground is allowed. * Returning to work will depend on the type of procedure and the results. Your doctor will discuss this with you. CALL YOUR DOCTOR FOR ANY OF THE FOLLOWING: *If bleeding from the puncture site occurs- Apply gentle pressure to site with clean cloth and call your doctor or EMS. * If a knot or lump forms under the skin, increases in size, or causes pain. * If bruising appears to be worsening or moving further down your leg instead of disappearing. * Temperature above 101 F. CARE OF YOUR GROIN INCISION; * Bruising or purple discoloration of the skin near the puncture site is common. * You may shower only, no bathtub bathing for 5 days. Be careful to avoid slipping as your leg may feel stiff. * If a closure device was used on your femoral artery, please see the attached guide regarding care of the device and your leg. * Leave dressing on FOR 24 hours. CARE OF YOUR WRIST INCISION; * Bruising or purple discoloration of the skin near the puncture site is common. * You may shower. * DO NOT submerge wrist. * Leave dressing on FOR 24 hours. SHALOM ROSAS MD Oct 09, 2019 11:10
--- NOTE | 2019-10-09 11:13 | Cardiac Cath Report ---
Cardiac Cath Report Physician (s)/Soil Sort Worker (s) Physician SHALOM ROSAS MD Pre-Procedure Diagnosis Pre-Procedure Diagnosis: Chest pain Post-Procedure Note Procedure Start Date: Oct 09, 2019 Name of Procedure: Left heart catheterization Left ventriculogram Aortic arch angiogram Findings/Procedure Note PROCEDURE NOTE: 69-year-old lady with hypertension, hyperlipidemia, admitted with chest pain resembling angina, decided to proceed with cardiac catheterization possible PTCA. After explaining the procedure to the patient, all pros and cons were explained, all questions were answered. The patient signed the consent and then she was placed on the cardiac catheterization laboratory. Groin was prepped SL fashion local anesthesia was used. Sheath placed in the right femoral artery. Christina right and left catheter were used to access the coronary system. Pigtail was used to access the left ventricular cavity. Left ventriculogram was done Aortic arch angiogram was done At the end of the procedure the sheath was removed. Closure device was used FINDINGS: Hemodynamics LV 113 over 4, end-diastolic pressure for Aorta 119/59 mean of 77 ANATOMY: Left Main is free of obstructive disease Left Anterior Descending has mild disease nonobstructive disease Left Circumflex has mild disease nonobstructive disease Right Coronory Artery has mild disease nonobstructive disease LV Gram was done showing normal left ventricular size and systolic function estimated ejection fraction 60 percent Aorta evaluation done with aortic arch angiogram showing normal aortic arch, no dissection or aneurysm, normal origin of the right innominate artery, left ca rotid and left subclavian arteries CONCLUSION: 1. Mild coronary artery disease nonobstructive disease 2. Normal left ventricular size and systolic function estimated ejection fraction 60 percent 3. Normal aortic arch and great vessels of the neck DISCUSSION AND RECOMMENDATION: Medical therapy is recommended, adding statin to her current medication Anesthesia Type: Conscious Sedation Estimated blood loss (mL): 15 ml Contrast Amount: 33 ml Total Radiation Dose: 175 mGy Post-Procedure Diagnosis Post-operative diagnosis: Chest pain Coronary artery disease Hypertension Hyperlipidemia SHALOM ROSAS MD Oct 09, 2019 11:13
[2019-10-09] MEDS ORDERED: PATIENT MAY USE OWN MEDS, ALL PO SCH (11:15)
--- NOTE | 2019-10-09 11:41 | Progress Note - Hospitalist ---
Subjective HPI/CC On Admission Date Seen by Provider: Oct 09, 2019 Time Seen by Provider: 10:15 this is a 69-year-old white female who presents with chest pressure intermittently but not always with exertion. she presented to the emergency room in [place] where she was given nitroglycerin with complete relief of her chest discomfort. She has a history of hypertension, hyperlipidemia, and family history of heart disease at a late age. She is adopted so some of her family history is unknown. At the time of my interview she is pain every Subjective/Events-last exam Patient has been without chest pressure or complaint overnight. Blood pressure is improved. Troponins are negative. Patient was taken to heart catheter this morning which showed nonobstructive mild disease Objective Exam Vital Signs Vital Signs Date Time Temp Pulse Resp B/P (MAP) Pulse Ox O2 Delivery O2 Flow Rate FiO2 10/09/19 08:51 96 Room Air 10/09/19 08:00 35.9 66 20 136/79 (98) 10/08/19 13:42 2.00 Capillary Refill : Less Than 3 Seconds General Appearance: No Apparent Distress Neck: Normal Inspection, Non Tender, Supple Respiratory: Lungs Clear, Normal Breath Sounds, No Accessory Muscle Use, No Respiratory Distress Cardiovascular: Regular Rate, Rhythm, No Gallop, No Murmur, Normal Peripheral Pulses Gastrointestinal: Normal Bowel Sounds, Non Tender, Soft Rectal: Deferred Back: Normal Inspection, No CVA Tenderness Extremity: Normal Capillary Refill, Non Tender, No Calf Tenderness Neurologic/Psychiatric: Alert, Oriented x3, No Motor/Sensory Deficits, Normal Mood/Affect Results/Procedures Lab Laboratory Tests 10/09/19 03:40 Patient resulted labs reviewed. Imaging: Reviewed Imaging Report Assessment/Plan Assessment and Plan Assess & Plan/Chief Complaint Chest pain-noncardiac improved and resolved probable discharge today Clinical Quality Measures AMI/AHF: ASA po Prior to arrival: Yes (81 mg) DVT/VTE Risk/Contraindication: Risk Factor Score Per Nursin RFS Level Per Nursing on Admit: 2=Moderate KOMAL ZUNIGA MD Oct 09, 2019 11:41
--- NOTE | 2019-10-09 14:58 | Discharge Summary ---
Diagnosis/Chief Complaint Date of Admission Oct 08, 2019 at 13:16 Date of Discharge October 09, 2019 Discharge Date: Oct 09, 2019 Discharge Time: 14:00 Admission Diagnosis chest pain Hypertension poorly controlled Hyperlipidemia Primary Care Self,Tee SANCHEZ Discharge Diagnosis Chest pressure of uncertain etiology Hypertension Hyperlipidemia intolerant of statins Discharge Summary Procedures/Consulations Cardiac catheterization by Dr. Bradshaw Discharge Physical Exam Allergies: Coded Allergies: [place]b-Ltu-Lyn Reductase Inhibitor (Verified Allergy, Severe, TACHYCARDIA, DIZZINESS, 04/29/19) ciprofloxacin (Verified Allergy, Severe, BLURRED VISION, TACHYCARDIA, 04/29/19) pantoprazole (Unverified Allergy, Mild, HIVES, ITCHING, 08/23/19) Vitals & I&Os Vital Signs Date Time Temp Pulse Resp B/P (MAP) Pulse Ox O2 Delivery O2 Flow Rate FiO2 10/09/19 13:30 66 18 103/66 (78) 94 Room Air 10/09/19 12:00 36.2 10/08/19 13:42 2.00 General Appearance: No Apparent Distress, WD/WN HEENT: Normal ENT Inspection, Pharynx Normal Respiratory: Chest Non Tender, Lungs Clear, Normal Breath Sounds, No Accessory Muscle Use, No Respiratory Distress Cardiovascular: Regular Rate, Rhythm, No Edema, No Gallop, No JVD, No Murmur, Normal Peripheral Pulses Gastrointestinal: Normal Bowel Sounds, No Organomegaly, Soft Extremity: Normal Capillary Refill, Normal Inspection, Non Tender, No Calf Tenderness Skin: Normal Color, Warm/Dry Neurologic/Psychiatric: Alert, Oriented x3, No Motor/Sensory Deficits, Normal Mood/Affect Hospital Course Was the Problem List Reviewed?: Yes The patient was admitted with chest discomfort. Serial cardiac enzymes were negative. The patient was seen in consultation by Dr. Bradshaw who performed a cardiac catheterization which showed nonobstructive minimal heart disease. The patient's blood pressure and pulse was normal throughout the hospitalization. The patient was pain-free at the time of discharge. Labs (last 24 hrs) Laboratory Tests 10/09/19 03:40: White Blood Count 5.9, Red Blood Count 4.93, Hemoglobin 14.8, Hematocrit 45, Mean Corpuscular Volume 91, Mean Corpuscular Hemoglobin 30, Mean Corpuscular Hemoglobin Concent 33, Red Cell Distribution Width 12.9, Platelet Count 201, Mean Platelet Volume 9.6, Sodium Level 140, Potassium Level 3.7, Chloride Level 102, Carbon Dioxide Level 24, Anion Gap 14, Blood Urea Nitrogen 20H, Creatinine 0.86, Estimat Glomerular Filtration Rate > 60, BUN/Creatinine Ratio 23, Glucose Level 121H, Calcium Level 9.9, Corrected Calcium 9.7, Total Bilirubin 0.5, Aspartate Amino Transf (AST/SGOT) 18, Alanine Aminotransferase (ALT/SGPT) 24, Alkaline Phosphatase 72, Troponin I < 0.028, Total Protein 7.0, Albumin 4.3, Triglycerides Level 179H, Cholesterol Level 246H, LDL Cholesterol Direct 168H, VLDL Cholesterol 36, HDL Cholesterol 52 Patient resulted labs reviewed. Imaging: Reviewed Imaging Report Discussion & Recommendations Discharge Planning: <30 minutes discharge planning Discharge Home Medications: Active Scripts Active Lipitor (Atorvastatin Calcium) 10 Mg Tablet 10 Mg PO DAILY Reported Aspir 81 (Aspirin) 81 Mg Tablet.dr 81 Mg PO DAILY Tylenol Extra Strength (Acetaminophen) 500 Mg Tablet 1,000 Mg PO Q6H PRN Fish Oil 1,200 mg Fish Oil (Fish Oil/Dha/Epa) 1 Each Capsule 1 Each PO DAILY Hydrochlorothiazide 12.5 Mg Capsule 12.5 Mg PO DAILY Metoprolol Tartrate 25 Mg Tablet 25 Mg PO BID Condition at discharge Stable Instructions to patient/family Please see electronic discharge instructions given to patient. Clinical Quality Measures AMI/AHF: ASA po Prior to arrival: Yes (81 mg) DVT/VTE Risk/Contraindication: Risk Factor Score Per Nursin RFS Level Per Nursing on Admit: 2=Moderate Copy Copies To 1: SELF,KOMAL HOLDER MD, MD Oct 09, 2019 14:58
--- NOTE | 2019-10-09 15:09 | NUR ---
Pt discharged at this time right groin site clean dry et intact upon discharge. Pt given discharge instructions, no questions at this time. IV removed. Pt escorted by nurse tech via wheelchair to private car at this time. Personal belongings with pt at time of discharge.
== END 2019-10-09 15:12 | disposition home or self-care (01) ==
LOC: EDUNIT# 11:22 → ER FS 11:24 → CSD 13:16
PROVIDERS: ADMIT Internal Medicine; ATTEND Internal Medicine
DX: I25.10 Atherosclerotic heart disease of native coronary artery without angina pectoris (principal); I10 Essential (primary) hypertension; E78.5 Hyperlipidemia, unspecified; E78.00 Pure hypercholesterolemia, unspecified; K21.9 Gastro-esophageal reflux disease without esophagitis; K59.09 Other constipation; F41.9 Anxiety disorder, unspecified; Z88.8 Allergy status to other drugs, medicaments and biological substances; Z88.1 Allergy status to other antibiotic agents; Z90.710 Acquired absence of both cervix and uterus; Z90.49 Acquired absence of other specified parts of digestive tract; Z79.82 Long term (current) use of aspirin; Z79.899 Other long term (current) drug therapy
CPT/HCPCS: 36221; 36415; 71045; 80053; 80061; 84484; 85025; 85027; 85379; 85610; 93005; 93041; 93458

== ENCOUNTER → 2020-01-31 | Outpatient (CLI) | payer MEDICARE, OTHER ==
[~2020-01-31] MED LIST changes: +ASPI-586 PO; +ATOR10TA PO; +HYDR-34 PO; -HYDR-3816 PO
[2020-01-31 10:02] LABS: SODIUM 142 MMOL/L (135-145)
[2020-01-31 10:03] LABS: ALANINE AMINOTRANSFERASE 20 U/L (0-55); ALBUMIN 4.5 GM/DL (3.2-4.5); ALKALINE PHOSPHATASE 75 U/L (40-136); BILIRUBIN,TOTAL 0.5 MG/DL (0.1-1.0); BUN/CREATININE RATIO 25; CALCIUM 9.8 MG/DL (8.5-10.1); CARBON DIOXIDE 26 MMOL/L (21-32); CHLORIDE 102 MMOL/L (98-107); CREATININE SERUM 0.91 MG/DL (0.60-1.30); GFR ESTIMATED > 60; GLUCOSE 127 MG/DL (70-105); TOTAL PROTEIN 7.3 GM/DL (6.4-8.2)
[2020-01-31 15:32] LABS: CHOLESTEROL 202 MG/DL (< 200); HDL CHOLESTEROL 58 MG/DL (40-60); TRIGLYCERIDES 151 MG/DL (<150); VLDL CHOLESTEROL 30 MG/DL (5-40)
== END ==
LOC: LAB FS 09:11
PROVIDERS: ATTEND Family Medicine
DX: I10 Essential (primary) hypertension (principal); I25.10 Atherosclerotic heart disease of native coronary artery without angina pectoris; E78.2 Mixed hyperlipidemia; R07.89 Other chest pain
CPT/HCPCS: 36415; 80053; 80061

== ENCOUNTER → 2020-05-25 | Outpatient (CLI) | payer MEDICARE, OTHER | LOC: CARD 10:32 | PROVIDERS: ATTEND Physician Assistant | DX: I08.0 Rheumatic disorders of both mitral and aortic valves (principal); I25.10 Atherosclerotic heart disease of native coronary artery without angina pectoris; I11.9 Hypertensive heart disease without heart failure; E78.2 Mixed hyperlipidemia | CPT/HCPCS: 93306 ==

== ENCOUNTER 2021-01-11 11:00 | Outpatient (RCR) | payer MEDICARE, OTHER | END 2021-04-11 | disposition home or self-care (01) | LOC: CARD 11:00 | PROVIDERS: ATTEND Physician Assistant | DX: I49.9 Cardiac arrhythmia, unspecified (principal); R00.2 Palpitations | CPT/HCPCS: 93225; 93226 ==